=== PATIENT | male | born 2000 | race Caucasian/White ===

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

== ENCOUNTER 2019-09-21 14:06 | Emergency (ER) | payer MEDICAID ==
[~2019-09-21] VITALS: Ht 172.7 cm; Wt 55.0 kg
[~2019-09-21 14:06] MED LIST changes: +HYDR-3653 PO; -HYDR-882 PO; +LITH300T3 PO; +PALI1.5T PO
[2019-09-21 14:10] VITALS: BP 108/67
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
[2019-09-21] MEDS ORDERED: NEOSPORIN OINT. PKT 1 PACKET ONE (14:29)
--- NOTE | 2019-09-21 15:07 | NUR ---
REPORT GIVEN TO JACKI DUMONT.
--- NOTE | 2019-09-21 15:22 | NUR ---
Patient/Caregiver given discharge instructions and they have confirmed that they understand the instructions. Patient ambulatory with steady gait.
== END 2019-09-21 15:23 | disposition home or self-care (01) ==
LOC: ED 15:00
DX: S61.421A Laceration with foreign body of right hand, initial encounter (principal); M25.531 Pain in right wrist; E78.00 Pure hypercholesterolemia, unspecified; F17.200 Nicotine dependence, unspecified, uncomplicated; W22.09XA Striking against other stationary object, initial encounter; Y93.89 Activity, other specified; Y92.098 Other place in other non-institutional residence as the place of occurrence of the external cause; Y99.8 Other external cause status
CPT/HCPCS: 99284